=== PATIENT | male | born 1995 | race Caucasian/White ===

== ENCOUNTER 2020-08-17 12:31 | Outpatient (REF) | payer OTHER, SELFPAY ==
[2020-08-17 12:54] LABS: COVID-19 Test Negative (Negative); IDNOW Serial# 55D5AD1C
== END 2020-08-17 12:32 | disposition home or self-care (01) ==
LOC: HO.LAB 12:31
PROVIDERS: Visit Provider Internal Medicine
DX: Z20.828 Contact with and (suspected) exposure to other viral communicable diseases (principal)
CPT/HCPCS: 87635; C9803

== ENCOUNTER 2020-12-06 20:28 | Emergency (ER) | payer OTHER, SELFPAY ==
[2020-12-06 21:32] VITALS: BP 144/75; PULSE 82; RESP 16; TEMP 36.8; O2SAT 97; BMI 26.9
[2020-12-06 23:09] VITALS: BP 117/74; PULSE 80; RESP 16; O2SAT 98
[2020-12-07] MEDS: Lidocaine HCl 2 % MPF 5 ML VIAL INFILTRATI ×2 (00:15)
[2020-12-07] MEDS: Diphth,Pertus(ACell),Tet Adult 0.5 ML SYRINGE IM (00:15)
--- NOTE | 2020-12-07 01:40 | ED_ITS ---
HPI - Wound/Laceration General Chief Complaint: Wound/Laceration Stated Complaint: finger lac Source: patient Mode of arrival: ambulatory Limitations: no limitations History of Present Illness HPI narrative: Patient presents to ED left thumb laceration. Patient states he was cut by glass model. Patient has complete range of motion of finger and denies any numbness or tingling. Patient unknown when he last got tetanus. Related Data Allergies Allergy/AdvReac Type Severity Reaction Status Date / Time No Known Allergies Allergy Unverified 05/11/20 16:33 [No Known Allergies*] Review of Systems Review of Systems: Yes all other systems are reviewed and are negative Constitutional: Constitutional: Reports as per HPI and Reports no additional constitutional complaints Eyes: Eyes: Reports as per HPI and Reports no additional eye complaints ENT: Reports system reviewed and no additional complaints, except as documented and Reports as per HPI Cardiovascular: Cardiovascular: Reports as per HPI and Reports no additional cardiovascular complaints Respiratory: Respiratory: Reports as per HPI and Reports no additional respiratory complaints Gastrointestinal: Gastrointestinal: Reports as per HPI and Reports no additional gastrointestinal complaints Genitourinary: Genitourinary: Reports no additional male genitourinary complaints and Reports as per HPI Musculoskeletal: Musculoskeletal: Reports no additional musculoskeletal complaints and Reports as per HPI Comments: Left thumb laceration Neurologic: Reports system reviewed and no additional complaints, except as documented and Reports as per HPI Psychiatric: Psychiatric: Reports no additional psychiatric complaints and Reports as per HPI PMF Past Medical History Medical History (Updated 12/07/20 @ 01:44 by FREDERIC Bravo) No known health problems Social History Social History Advance Directives: No Physical Exam Vital Signs: Vital Signs: Last Vital Signs Temp 98.2 F 12/06/20 21:32 Pulse 80 12/06/20 23:09 Resp 16 12/06/20 23:09 BP 117/74 12/06/20 23:09 Pulse Ox 98 12/06/20 23:09 Body Mass Index 26.9 Const: General: cooperative and healthy appearing Orientation/consciousness: patient oriented x3 HENMT: Head: Yes normal to inspection, Yes No palpable skull fracture present, Yes normocephalic, Yes atraumatic, No abrasion, No Dia's sign, No contusion, No cranial bruits, No hematoma, No laceration, No occipital foramen tenderness, No palpable skull fracture, No raccoon eyes, No scalp lesion, No scalp tenderness, No Temporal artery tenderness present and No periorbital ecchymosis Eyes: General: appearance normal, both eyes and all related structures Neck: Neck: Yes normal visual inspection, Yes full ROM, Yes no lymphadenopathy, Yes no meningeal signs, Yes trachea midline, Yes supple and No tender Chest: Chest palpation & inspection: normal inspection of the chest and normal palpation of entire chest wall Resp: Effort & Inspection: normal respiratory effort and able to speak in complete sentences Auscultation: clear to auscultation bilaterally Cardio: Jugular venous distension: no JVD Heart sounds: S1 normal heart sound present and S2 normal heart sound present GI: Inspection: Yes normal to inspection and No abdominal wall ecchymosis Palpation (GI): Soft to palpation, not firm, nontender, no guarding and not rigid : General: No CVA tenderness and Yes no CVA tenderness Back/Spine/Pelvis: Back: no CVA tenderness, No CVA tenderness and No back tenderness Skin: General skin exam: no rashes or lesions noted and elasticity normal Neuro: General: patient oriented x3, no meningeal signs and CN's II-XI intact bilaterally Cranial nerves: Yes CN's II-XII intact bilaterally Extrem: Other: Left hand: Left thumb positive for superficial laceration on palm aspect of DIP. Patient has complete range of motion of left thumb. Capillary refill intact of left thumb intact. Negative for tendon injury. Rest of extremity negative for signs of trauma. Radial pulse intact. Neuro exam of all fingers intact. Psych: Appearance: grossly normal, well kempt and not disheveled Course Course Course Narrative: No indication for x-ray. Laceration very superficial and has complete range of motion. No signs of tendon injury will do laceration repair. Reevaluation(s) Reevaluation #1: Left thumb, laceration clean with sterile saline and Betadine iodine. 5 mL of lidocaine 2% was used to do digital block of left thumb finger. That was not successful so 3 mL extra of lidocaine 2% was placed directly into wound at the DIP of thumb. Size 4 nylon sutures were used. Five stitches were placed. Capillary refill intact. Radial pulse intact complete range of motion of all fingers. Patient given Tdap MDM - Wound/Laceration MDM Narrative Medical decision making narrative: Left thumb laceration Discharge Plan Discharge Clinical Impression: Laceration Patient Disposition: Home, Self-Care Instructions: Finger Laceration (ED) Additional Instructions: Return to the ED for any swelling, redness, pus discharge, foul odor, fever, chills, bluish discoloration of finger, or any other concerning symptoms. Return to the ED in 9 days for suture removal. Follow-up with the PCP if i ndicated. Stand Alone Forms: Work/School Release Interventions: ED Discharge Assessment Last Done: 12/07/20 02:04 Discharge Date/Time: 12/07/20 02:06 Print Language: Hungarian
== END 2020-12-07 02:06 | disposition home or self-care (01) ==
PROVIDERS: Emergency Provider Emergency Medicine
DX: S61.012A Laceration without foreign body of left thumb without damage to nail, initial encounter (principal); W25.XXXA Contact with sharp glass, initial encounter; Y93.89 Activity, other specified; Y92.019 Unspecified place in single-family (private) house as the place of occurrence of the external cause; Y99.9 Unspecified external cause status
CPT/HCPCS: 12001; 90471; 90715; 99284

== ENCOUNTER 2021-08-31 00:17 | Emergency (ER) | payer OTHER, SELFPAY ==
--- NOTE | ~2021-08-31 | US_ITS ---
EXAMINATION: US SCROTUM US SCROTUM DOPPLER CLINICAL INFORMATION: Right testicle pain. COMPARISON: None TECHNIQUE: A sonogram of the scrotum was performed assessing hatch-scale appearance and color Doppler flow. Spectral Doppler analysis of the arterial and venous flow were performed in the testes bilaterally. FINDINGS: RIGHT: Right testicle measures 3.3 x 4.4 x 2.7 cm, volume 20 mL. No focal testicular parenchymal lesions are visualized. Spectral Doppler analysis of the arterial and venous flow is normal in the right testis. Right epididymal head is normal in size. There are small right epididymal head cysts measuring 3 x 4 x 3 mm and 2 x 2 x 3 mm. There is no right hydrocele. There is no right varicocele. Right epididymal Doppler flow is normal. LEFT: Left testicle measures 3 x 4.7 x 4.6 cm, volume 19 mL. No focal testicular parenchymal lesions are visualized. Spectral Doppler analysis of the arterial and venous flow is normal in the left testis. Left epididymal head is normal in size. There is a left epididymal head cyst that measures 3 x 5 x 4 mm. There is a small left hydrocele. There is no left varicocele. Left epididymal Doppler flow is normal. US/US scrotum IMPRESSION: Normal-appearing testicles. Bilateral epididymal head cysts. Small left hydrocele.
--- NOTE | ~2021-08-31 | US_ITS ---
EXAMINATION: US SCROTUM US SCROTUM DOPPLER CLINICAL INFORMATION: Right testicle pain. COMPARISON: None TECHNIQUE: A sonogram of the scrotum was performed assessing hatch-scale appearance and color Doppler flow. Spectral Doppler analysis of the arterial and venous flow were performed in the testes bilaterally. FINDINGS: RIGHT: Right testicle measures 3.3 x 4.4 x 2.7 cm, volume 20 mL. No focal testicular parenchymal lesions are visualized. Spectral Doppler analysis of the arterial and venous flow is normal in the right testis. Right epididymal head is normal in size. There are small right epididymal head cysts measuring 3 x 4 x 3 mm and 2 x 2 x 3 mm. There is no right hydrocele. There is no right varicocele. Right epididymal Doppler flow is normal. LEFT: Left testicle measures 3 x 4.7 x 4.6 cm, volume 19 mL. No focal testicular parenchymal lesions are visualized. Spectral Doppler analysis of the arterial and venous flow is normal in the left testis. Left epididymal head is normal in size. There is a left epididymal head cyst that measures 3 x 5 x 4 mm. There is a small left hydrocele. There is no left varicocele. Left epididymal Doppler flow is normal. US/US scrotum doppler IMPRESSION: Normal-appearing testicles. Bilateral epididymal head cysts. Small left hydrocele.
[2021-08-31 00:43] VITALS: BP 141/90; PULSE 63; RESP 14; TEMP 36.4; O2SAT 97; BMI 27.5
[2021-08-31 01:21] LABS: Appearance Urine CLEAR; Color Urine YELLOW; Glucose Urine UA NEG (NEG); Leukocyte Esterase Urine NEG (NEG); Nitrite Urine NEG (NEG); Specific Gravity - Urine >= 1.030 (1.005-1.025); Urine Blood NEG (NEG); Urine Ketones 5 MG/DL (NEG); Urine Protein NEG (NEG-TRACE)
[2021-08-31 01:29] LABS: Mucus Urine 1+ /LPF; RBC Urine 0-2 /HPF (0); Squamous Epithelial Cell Urine TRACE /LPF; WBC Urine 0-2 /HPF (0-4)
--- NOTE | 2021-08-31 09:11 | PC.NURSE ---
describes pain consistent with triage note. may be better with testicle lifted. no STD likelyhood. denies discoloration.
[2021-08-31 11:01] VITALS: BP 139/86; PULSE 58; RESP 16; TEMP 35.9; O2SAT 100
--- NOTE | 2021-08-31 12:50 | ED.MALEGU ---
HPI - Male Genitourinary General Chief complaint: Urogenital-Male Stated complaint: Uro genital male Time Seen by Provider: 08/31/21 03:06 History of Present Illness HPI Narrative: Patient complains of right testicular pain for several days at some mild achy pain that is been continuous, he denies any trauma he denies any dysuria he has had no discharge no genital sores and he sexualy active with only 1 partner Related Data Previous Rx's Medication Instructions Recorded ibuprofen 600 mg tablet 600 mg PO Q6H PRN #20 tab 08/31/21 Allergies Allergy/AdvReac Type Severity Reaction Status Date / Time No Known Allergies Allergy Verified 08/31/21 09:10 [No Known Allergies*] Review of Systems Review of Systems: Positive for right testicle pain Negatives are no fever no chills no headache no neck pain no chest pain no abdominal pain no dysuria no frequency no discharge no sores no rashes Yes all other systems are reviewed and are negative PMFSH Past Medical History Source: nursing notes reviewed Medical History (Updated 08/31/21 @ 14:08 by FREDERIC Rocha) No known health problems Social History Social History Advance Directives: No Advance Directives Information Provided: Yes Physical Exam Vital Signs: Vital Signs: Last Vital Signs Temp 96.7 F L 08/31/21 11:01 Pulse 58 08/31/21 11:01 Resp 16 08/31/21 11:01 BP 139/86 08/31/21 11:01 Pulse Ox 100 08/31/21 11:01 BMI result Body Mass Index 27.5 General appearance is no acute distress The neck is supple Respiratory no distress The abdomen soft nontender The genital exam was normal there was no discharge no lesions no sores, no swelling, there was mild tenderness to the right testicle which was otherwise normal in appearance and no hernias were palpated Extremities full range of motion x4 Course Course Course Narrative: Ultrasound did not show any torsion or epididymitis or mass, there was no acute finding There were 2 small epididymal cysts and a small left-sided hydrocele UA was normal, no white cells no sign of infection GC and chlamydia testing came back today in were negative Well-appearing patient with mild right testicle discomfort is discharged to follow with urologist and given warning to return for increased pain fever swelling any worse condition MDM - Male Genitourinary Lab Data Attestation: I reviewed the patient's lab results. Labs: Lab Results 08/31/21 08/31/21 08/31/21 Range/Units 01:05 10:52 10:52 Urine Color YELLOW YELLOW Urine Appearance CLEAR TURBID Urine pH 6.0 6.0 (5.0-8.0) Ur Specific [place] >= 1.030 H >= 1.030 H (1.005-1.025) Urine Protein NEG NEG (NEG-TRACE) MG/DL Urine Glucose (UA) NEG NEG (NEG) MG/DL Urine Ketones 5 5 (NEG) MG/DL Urine Blood NEG NEG (NEG) Urine Nitrite NEG NEG (NEG) Ur Leukocyte Esterase NEG NEG (NEG) Urine RBC 0-2 (0) /HPF Urine WBC 0-2 (0-4) /HPF Ur Squamous Epith Cells TRACE /LPF Urine Bacteria NONE /LPF Urine Mucus 1+ /LPF Chlam trachomat DNA PCR NOT DETECTED (Not Detect.) N.gonorrhoeae DNA (PCR) NOT DETECTED (Not Detect.) Discharge Plan Discharge Clinical Impression: Right testicular pain Patient Disposition: Home, Self-Care Additional Instructions: At this time there is no sign of any dangerous or serious condition The ultrasound did not show any twisted blood vessel or infection or mass The STD testing was normal the urinalysis was normal no sign of urine infection or STD Discomfort can commonly occur for many causes that are not dangerous Use Motrin as needed and follow with urologist Return any time for worsening pain swelling any worse condition or any concerns Prescriptions: New ibuprofen 600 mg tablet 600 mg PO Q6H PRN (Reason: pain) Qty: 20 RF: 0 Referrals: Abdi Gray MD [Physician] - 1 week (Right testicular pain, ultrasound no torsion or epididymitis but positive for epididymal cysts) Interventions: ED Discharge Assessment Last Done: 08/31/21 14:17 Discharge Date/Time: 08/31/21 14:20
[2021-08-31 13:02] LABS: Appearance Urine TURBID; Color Urine YELLOW; Glucose Urine UA NEG (NEG); Leukocyte Esterase Urine NEG (NEG); Nitrite Urine NEG (NEG); Specific Gravity - Urine >= 1.030 (1.005-1.025); Urine Blood NEG (NEG); Urine Ketones 5 MG/DL (NEG); Urine Protein NEG (NEG-TRACE)
[2021-08-31 13:26] LABS: CT PCR NOT DETECTED (Not Detect.); NG PCR NOT DETECTED (Not Detect.)
== END 2021-08-31 14:20 | disposition home or self-care (01) ==
PROVIDERS: Physician Assistant Medical; Emergency Provider Emergency Medicine
DX: N50.811 Right testicular pain (principal)
CPT/HCPCS: 76870; 81001; 81003; 87491; 87591; 93975; 99283; 99284